=== PATIENT | male | born 1930 | race Caucasian/White ===

== ENCOUNTER → 2017-03-24 | Outpatient (CLI) | payer OTHER ==
[2017-03-24 07:28] LABS: Urine RBC None Seen /hpf (0 - 3)
[2017-03-24 07:41] LABS: Urine Bilirubin Negative (Negative); Urine Blood Negative /uL (Negative); Urine Color Yellow (Yellow); Urine Glucose Normal (Normal); Urine Ketone Negative (Negative); Urine Mucus FEW (None Seen); Urine Nitrite Negative (Negative); Urine Squamous Epithelial Cell FEW /hpf (<5); Urine Urobilinogen Normal (Negative)
[2017-03-24 08:47] LABS: Albumin 4.2 g/dL (3.4-5.0); BUN/Creatinine Ratio 16.7; Bilirubin, Total 0.5 mg/dL (0.2-1.0); Calcium 9.3 mg/dL (8.5-10.1); Potassium 4.4 mmol/L (3.5-5.1); Total Protein 7.3 g/dL (6.4-8.2)
== END | disposition home or self-care (01) ==
LOC: LAB 06:39
PROVIDERS: ATTEND Internal Medicine
DX: Z00.00 Encounter for general adult medical examination without abnormal findings (principal); E78.2 Mixed hyperlipidemia; I10 Essential (primary) hypertension; E55.9 Vitamin D deficiency, unspecified; E11.9 Type 2 diabetes mellitus without complications
CPT/HCPCS: 36415; 80053; 80061; 81001; 82043; 82306; 83036

== ENCOUNTER → 2018-01-30 | Outpatient (CLI) | payer OTHER ==
[2018-01-30 09:19] LABS: Basophils # (auto) 0.1 uL; Eosinophils # (auto) 0.2 uL; Hematocrit 31.9 % (41.0-53.0); Lymphocytes # (auto) 2.2 uL; Platelet Count (auto) 51 10^3/uL (140-450); White Blood Cell 4.9 10^3/uL (4.4-10.8)
[2018-01-30 09:21] LABS: Basophils % (auto) 2.5 % (0.0-2.0); Eosinophils % (auto) 3.9 % (0.0-7.0); Lymphocytes % (auto) 44.7 % (10.0-50.0); Mean Corpuscular Hgb Conc. 34.3 g/dL (32.0-36.0); Mean Corpuscular Volume 93.1 fL (80.0-100.0); Monocytes # (auto) 0.4 uL; Monocytes % (auto) 7.8 % (0.0-12.0); Neutrophils % (auto) 41.1 % (37.0-80.0); Nucleated Red Blood Cells % 0.2 %; Red Blood Cells 3.43 10^6/uL (4.5-5.90)
[2018-01-30 10:01] LABS: Albumin 4.1 g/dL (3.4-5.0); BUN/Creatinine Ratio 19.5; Bilirubin, Total 0.5 mg/dL (0.2-1.0); Calcium 9.2 mg/dL (8.5-10.1); Potassium 4.7 mmol/L (3.5-5.1); Total Protein 7.3 g/dL (6.4-8.2)
== END | disposition home or self-care (01) ==
LOC: LAB 07:58
PROVIDERS: ATTEND Physician Assistant
DX: Z00.01 Encounter for general adult medical examination with abnormal findings (principal); I10 Essential (primary) hypertension; E11.9 Type 2 diabetes mellitus without complications; K21.9 Gastro-esophageal reflux disease without esophagitis; H40.10X2 Unspecified open-angle glaucoma, moderate stage
CPT/HCPCS: 36415; 80053; 80061; 83036; 84153; 85025

== ENCOUNTER → 2018-06-21 | Outpatient (CLI) | payer OTHER | END | disposition home or self-care (01) | LOC: LAB 10:48 | PROVIDERS: ATTEND Internal Medicine Gastroenterology | DX: K21.9 Gastro-esophageal reflux disease without esophagitis (principal); R19.7 Diarrhea, unspecified; E11.9 Type 2 diabetes mellitus without complications; I10 Essential (primary) hypertension | CPT/HCPCS: 82705; 82784; 83516; 86255; 87045; 87493; 87899 ==

== ENCOUNTER 2018-08-03 15:47 | Inpatient (IN) | payer OTHER ==
[~2018-08-03] VITALS: Ht 175.3 cm; Wt 67.4 kg
[2018-08-03] MEDS ORDERED: ALBUTEROL SULF 2.5 MG/0.5ML(0.5%) NEB SOLN NEB ONE (16:15)
[2018-08-03] MEDS ORDERED: IPRATROPIUM BROM 0.5 MG/2.5ML INH SOL NEB ONE (16:15)
[2018-08-03] MEDS ORDERED: cefTRIAXone 1GM/10ml IVPUSH 10 ML IV ONE (16:30)
[2018-08-03 16:52] LABS: Mean Corpuscular Hemoglobin 34.4 pg (28.0-32.0); White Blood Cell 3.4 10^3/uL (4.4-10.8)
[2018-08-03 16:54] LABS: Hematocrit 22.6 % (41.0-53.0); Hemoglobin 7.9 g/dL (13.5-17.5); Mean Corpuscular Hgb Conc. 35.1 g/dL (32.0-36.0); Mean Corpuscular Volume 98.2 fL (80.0-100.0); Red Cell Distribution Width 18.5 % (11.8-14.3)
[2018-08-03 17:08] LABS: Platelet Count (auto) 36 10^3/uL (140-450)
[2018-08-03 17:09] LABS: Band Neutrophils % (manual) 0; Basophils % (manual) 0 (0.0-2.0); Blast Cells 0; Eosinophils % (manual) 0 (0-7); INR 0.96 (0.9-1.15); Metamyelocytes % 0; Myelocytes % 0; Partial Thromboplastin Time 22.4 sec (23.78-33.04); Promyelocytes % 0; Prothrombin Time 10.3 sec (9.27-12.13); Reactive Lymphocytes 0
[2018-08-03 17:12] LABS: Alanine Aminotransferase 23 U/L (16-61); Alkaline Phosphatase 47 U/L (45-117); Anion Gap 14 (5-15); Aspartate Aminotransferase 13 U/L (15-37); Bilirubin, Total 0.4 mg/dL (0.2-1.0); Blood Urea Nitrogen 24 mg/dL (7-18); Carbon Dioxide 20 mmol/L (21-32); Chloride 96 mmol/L (98-107); GFR African American 49 mL/min; GFR Non-African American 40 mL/min; Glucose 101 mg/dL (74-106); Potassium 4.2 mmol/L (3.5-5.1); Sodium 130 mmol/L (136-145); Total Protein 6.9 g/dL (6.4-8.2)
[2018-08-03] MEDS ORDERED: AZITHROMYCIN 500MG/ 250ML 250 ML IV ONE (17:30)
[2018-08-03 17:33] LABS: Lymphocytes % (manual) 57 (10.0-50.0); Monocytes % (manual) 8 (0-12)
[2018-08-03] MEDS ORDERED: PROMETHAZINE HCL 25 MG/ML 1ML IV PRN (18:15)
[2018-08-03] MEDS ORDERED: VANCOMYCIN PER PHARMACY 0 MG IV SCH (18:15)
[2018-08-03] MEDS ORDERED: NITROGLYCERIN 0.4 MG SL TAB SL PRN (18:15)
[2018-08-03] MEDS ORDERED: MORPHINE SULF INJ 2 MG/ML SYRINGE 1ML IV PRN ×2 (18:15)
[2018-08-03] MEDS ORDERED: TEMAZEPAM 15 MG CAP PO PRN (18:15)
[2018-08-03] MEDS ORDERED: ACETAMINOPHEN 500 MG TAB PO PRN (18:15)
[2018-08-03] MEDS ORDERED: LORazepam 0.5 MG TAB PO PRN (18:15)
[2018-08-03] MEDS ORDERED: LACTULOSE 20Gm/30ML SOLN PO PRN (18:15)
[2018-08-03] MEDS ORDERED: DEXTROSE (50%) 50ML SYRG IV PRN (18:15)
[2018-08-03] MEDS ORDERED: ALBUTEROL SULF 2.5 MG/0.5ML(0.5%) NEB SOLN NEB PRN (18:15)
[2018-08-03] MEDS ORDERED: PIPERACILLIN-TAZOB 3.375GM 100 ML IV ONE (18:15)
[2018-08-03] MEDS ORDERED: MORPHINE SULFATE 4 MG/ML SYR/VIAL IV PRN ×2 (18:30)
[2018-08-03] MEDS: SODIUM CHLORIDE 0.9% 1,000 ML IV SCH (18:52)
[2018-08-03] MEDS ORDERED: VANCOMYCIN 1GM/250ML 250 ML IV ONE (19:30)
[2018-08-03 21:16] VITALS: BP 100/67
[2018-08-03 22:00] VITALS: BP 110/58
[2018-08-03] MEDS: InsuLIN REG 1unit/0.01ml Soln (100units/ml) SC SCH (22:00)
[2018-08-03] MEDS: ACCU-CHEK COMFORT CURVE STRIP VI SCH (22:03)
[2018-08-04] MEDS: ALBUTEROL SULF 2.5 MG/0.5ML(0.5%) NEB SOLN NEB SCH ×4 (00:10→19:01)
[2018-08-04] MEDS: PIPERACILLIN-TAZOB 3.375GM 100 ML IV SCH ×5 (00:35→23:44)
[2018-08-04 05:00] VITALS: BP 86/40
[2018-08-04] MEDS ORDERED: SODIUM CHLORIDE 0.9% 1,000 ML IV ONE (06:00)
[2018-08-04] MEDS: InsuLIN REG 1unit/0.01ml Soln (100units/ml) SC SCH ×2 (06:28→11:30)
[2018-08-04] MEDS: ACCU-CHEK COMFORT CURVE STRIP VI SCH ×2 (06:28→11:30)
[2018-08-04 06:34] LABS: White Blood Cell 3.7 10^3/uL (4.4-10.8)
[2018-08-04 06:37] LABS: Hematocrit 20.4 % (41.0-53.0); Hemoglobin 7.4 g/dL (13.5-17.5); Mean Corpuscular Hemoglobin 35.2 pg (28.0-32.0); Mean Corpuscular Hgb Conc. 36.3 g/dL (32.0-36.0); Mean Corpuscular Volume 96.9 fL (80.0-100.0); Platelet Count (auto) 37 10^3/uL (140-450); Red Blood Cells 2.11 10^6/uL (4.5-5.90); Red Cell Distribution Width 18.7 % (11.8-14.3)
[2018-08-04 06:46] LABS: BUN/Creatinine Ratio 12.5; Calcium 8.3 mg/dL (8.5-10.1); Potassium 4.3 mmol/L (3.5-5.1)
[2018-08-04] MEDS: SODIUM CHLORIDE 0.9% 1,000 ML IV SCH ×2 (07:07→20:42)
[2018-08-04 07:08] LABS: Basophils % (manual) 0 (0.0-2.0); Blast Cells 0; Metamyelocytes % 0; Myelocytes % 0; Promyelocytes % 0; Reactive Lymphocytes 0
[2018-08-04 08:19] LABS: Band Neutrophils % (manual) 3; Eosinophils % (manual) 2 (0-7); Lymphocytes % (manual) 57 (10.0-50.0); Monocytes % (manual) 9 (0-12)
[2018-08-04] MEDS ORDERED: VANCOMYCIN 1GM/250ML 250 ML IV ONE (09:00)
[2018-08-04 09:35] VITALS: BP 100/48
[2018-08-04] MEDS: AZITHROMYCIN 500MG/ 250ML 250 ML IV SCH (10:00)
[2018-08-04] MEDS: PANTOPRAZOLE 40 MG TAB PO SCH (10:13)
[2018-08-04 13:00] VITALS: BP 100/51
[2018-08-04 16:31] VITALS: BP 104/47
[2018-08-04 22:00] VITALS: BP 110/57
[2018-08-05] MEDS: ALBUTEROL SULF 2.5 MG/0.5ML(0.5%) NEB SOLN NEB SCH ×4 (00:17→19:21)
[2018-08-05] MEDS: HYDROcodone-ACET 5/325MG TAB PO PRN ×2 (03:36→14:20)
[2018-08-05 04:55] VITALS: BP 94/51
[2018-08-05] MEDS: PIPERACILLIN-TAZOB 3.375GM 100 ML IV SCH ×4 (05:29→23:55)
[2018-08-05] MEDS: SODIUM CHLORIDE 0.9% 1,000 ML IV SCH ×3 (06:19→23:55)
[2018-08-05 06:28] LABS: BUN/Creatinine Ratio 10.9; Calcium 8.4 mg/dL (8.5-10.1); Magnesium 2.3 mg/dL (1.6-2.6); Potassium 4.2 mmol/L (3.5-5.1)
[2018-08-05 06:47] LABS: White Blood Cell 3.4 10^3/uL (4.4-10.8)
[2018-08-05 06:49] LABS: Hematocrit 21.5 % (41.0-53.0); Hemoglobin 7.7 g/dL (13.5-17.5); Mean Corpuscular Hemoglobin 35.1 pg (28.0-32.0); Mean Corpuscular Hgb Conc. 35.9 g/dL (32.0-36.0); Mean Corpuscular Volume 97.9 fL (80.0-100.0); Platelet Count (auto) 34 10^3/uL (140-450); Red Cell Distribution Width 17.3 % (11.8-14.3)
[2018-08-05 07:30] LABS: Band Neutrophils % (manual) 0; Basophils % (manual) 0 (0.0-2.0); Blast Cells 0; Metamyelocytes % 0; Myelocytes % 0; Promyelocytes % 0; Reactive Lymphocytes 0
[2018-08-05 09:00] VITALS: BP 100/44
[2018-08-05 09:15] LABS: Eosinophils % (manual) 2 (0-7); Lymphocytes % (manual) 50 (10.0-50.0); Monocytes % (manual) 4 (0-12)
[2018-08-05] MEDS: AZITHROMYCIN 500MG/ 250ML 250 ML IV SCH (10:41)
[2018-08-05] MEDS: PANTOPRAZOLE 40 MG TAB PO SCH (10:42)
[2018-08-05] MEDS: VANCOMYCIN 1GM/250ML 250 ML IV SCH (11:58)
[2018-08-05 13:00] VITALS: BP 116/62
[2018-08-05 17:00] VITALS: BP 114/54
[2018-08-05 21:41] VITALS: BP 102/54
[2018-08-05 22:22] LABS: Urine Bacteria NONE SEEN /hpf (None Seen); Urine Blood Negative /uL (Negative); Urine Specific Gravity 1.008 (1.001-1.035); Urine WBC 21 /hpf (0 - 3)
[2018-08-06] MEDS: ALBUTEROL SULF 2.5 MG/0.5ML(0.5%) NEB SOLN NEB SCH ×4 (00:32→18:37)
[2018-08-06] MEDS: VANCOMYCIN 1GM/250ML 250 ML IV SCH ×2 (03:55→22:14)
[2018-08-06 05:36] VITALS: BP 106/59
[2018-08-06] MEDS ORDERED: LISI2.5T47 PO (05:39)
[2018-08-06] MEDS ORDERED: METF-370 PO (05:39)
[2018-08-06] MEDS: PIPERACILLIN-TAZOB 3.375GM 100 ML IV SCH ×3 (06:43→18:21)
[2018-08-06 07:17] LABS: Hematocrit 21.2 % (41.0-53.0); Hemoglobin 7.4 g/dL (13.5-17.5); Mean Corpuscular Hemoglobin 34.2 pg (28.0-32.0); Mean Corpuscular Volume 97.9 fL (80.0-100.0); Platelet Count (auto) 39 10^3/uL (140-450); Red Blood Cells 2.16 10^6/uL (4.5-5.90)
[2018-08-06 07:21] LABS: Band Neutrophils % (manual) 0; Basophils % (manual) 0 (0.0-2.0); Blast Cells 0; Metamyelocytes % 0; Myelocytes % 0; Promyelocytes % 0
[2018-08-06 07:30] LABS: BUN/Creatinine Ratio 9.9; Calcium 8.3 mg/dL (8.5-10.1); Potassium 4.1 mmol/L (3.5-5.1)
[2018-08-06 09:00] VITALS: BP 99/46
[2018-08-06 10:01] LABS: Eosinophils % (manual) 1 (0-7); Lymphocytes % (manual) 64 (10.0-50.0); Monocytes % (manual) 6 (0-12); Reactive Lymphocytes 9
[2018-08-06] MEDS: PANTOPRAZOLE 40 MG TAB PO SCH (10:23)
[2018-08-06] MEDS: AZITHROMYCIN 500MG/ 250ML 250 ML IV SCH (10:24)
[2018-08-06] MEDS: SODIUM CHLORIDE 0.9% 1,000 ML IV SCH ×2 (12:25→15:35)
[2018-08-06 13:00] VITALS: BP 104/47
[2018-08-06] MEDS: HYDROcodone-ACET 5/325MG TAB PO PRN (15:32)
[2018-08-06 17:00] VITALS: BP 111/51
[2018-08-06 22:00] VITALS: BP 116/60
[2018-08-07] VITALS (7 sets, daily range): BP systolic 98–123; BP diastolic 52–60
[2018-08-07] MEDS: ALBUTEROL SULF 2.5 MG/0.5ML(0.5%) NEB SOLN NEB SCH ×4 (00:17→19:08)
[2018-08-07] MEDS: PIPERACILLIN-TAZOB 3.375GM 100 ML IV SCH ×2 (00:32→06:27)
[2018-08-07 06:02] LABS: Hemoglobin 7.3 g/dL (13.5-17.5)
[2018-08-07 06:04] LABS: Hematocrit 20.4 % (41.0-53.0); Mean Corpuscular Hgb Conc. 35.6 g/dL (32.0-36.0); Mean Corpuscular Volume 98.2 fL (80.0-100.0); Platelet Count (auto) 43 10^3/uL (140-450); Red Blood Cells 2.07 10^6/uL (4.5-5.90); Red Cell Distribution Width 17.6 % (11.8-14.3); White Blood Cell 3.4 10^3/uL (4.4-10.8)
[2018-08-07 06:08] LABS: BUN/Creatinine Ratio 10.1; Calcium 8.3 mg/dL (8.5-10.1); Potassium 4.1 mmol/L (3.5-5.1)
[2018-08-07 06:23] LABS: Basophils % (manual) 0 (0.0-2.0); Blast Cells 0; Metamyelocytes % 0; Myelocytes % 0; Promyelocytes % 0
[2018-08-07] MEDS: AZITHROMYCIN 500MG/ 250ML 250 ML IV SCH (09:36)
[2018-08-07] MEDS: PANTOPRAZOLE 40 MG TAB PO SCH (09:37)
[2018-08-07] MEDS: HYDROcodone-ACET 5/325MG TAB PO PRN (10:42)
[2018-08-07 11:40] LABS: Hepatitis A Ab IgM Negative
[2018-08-07 11:52] LABS: Hepatitis C Antibody Negative (Negative)
[2018-08-07] MEDS ORDERED: HYDROcodone-ACET 5/325MG TAB PO PRN (12:00)
[2018-08-07] MEDS ORDERED: LEVOFLOXACIN 500MG 100 ML IV ONE (12:00)
[2018-08-07] MEDS ORDERED: FLORASTOR (S. BOULARDII) 250 MG CAP PO ONE (12:00)
[2018-08-07 12:16] LABS: Hepatitis B Core IgM Negative; Hepatitis B Surface Antigen Negative (Negative)
[2018-08-07 13:09] LABS: Lymphocytes % (manual) 54 (10.0-50.0)
[2018-08-07 13:10] LABS: Band Neutrophils % (manual) 3; Eosinophils % (manual) 3 (0-7); Monocytes % (manual) 3 (0-12); Reactive Lymphocytes 2
[2018-08-07] MEDS: SODIUM CHLORIDE 0.9% 1,000 ML IV SCH (14:38)
[2018-08-08] MEDS: ALBUTEROL SULF 2.5 MG/0.5ML(0.5%) NEB SOLN NEB SCH ×3 (00:49→11:25)
[2018-08-08] MEDS: SODIUM CHLORIDE 0.9% 1,000 ML IV SCH (02:40)
[2018-08-08 05:17] VITALS: BP 100/46
[2018-08-08 06:45] LABS: Hematocrit 20.6 % (41.0-53.0); Hemoglobin 7.3 g/dL (13.5-17.5); Mean Corpuscular Hemoglobin 34.7 pg (28.0-32.0); Mean Corpuscular Hgb Conc. 35.6 g/dL (32.0-36.0); Mean Corpuscular Volume 97.5 fL (80.0-100.0); Platelet Count (auto) 52 10^3/uL (140-450); Red Blood Cells 2.11 10^6/uL (4.5-5.90); Red Cell Distribution Width 18.1 % (11.8-14.3)
[2018-08-08 06:50] LABS: Blast Cells 0; Eosinophils % (manual) 0 (0-7); Myelocytes % 0; Promyelocytes % 0
[2018-08-08 06:58] LABS: BUN/Creatinine Ratio 10.5; Calcium 8.4 mg/dL (8.5-10.1); Potassium 4.4 mmol/L (3.5-5.1)
[2018-08-08 07:42] LABS: Band Neutrophils % (manual) 4; Basophils % (manual) 1 (0.0-2.0); Lymphocytes % (manual) 54 (10.0-50.0); Metamyelocytes % 1; Monocytes % (manual) 6 (0-12); Reactive Lymphocytes 1
[2018-08-08 08:00] VITALS: BP 128/63
[2018-08-08 09:00] VITALS: BP 128/63
[2018-08-08 09:34] LABS: % Iron Saturation 64.6 % (20-55)
[2018-08-08 09:52] LABS: Folate (Folic Acid) 18.38 ng/mL (5.38-24)
[2018-08-08] MEDS ORDERED: FLORASTOR (S. BOULARDII) 250 MG CAP PO SCH (10:00)
[2018-08-08] MEDS ORDERED: LEVOFLOXACIN 500MG 100 ML IV SCH (10:00)
[2018-08-08] MEDS: PANTOPRAZOLE 40 MG TAB PO SCH (10:03)
[2018-08-08 13:00] VITALS: BP 117/87
[2018-08-08] MEDS ORDERED: ALBUAER3 IN (15:09)
[2018-08-08] MEDS ORDERED: LEVO500T21 PO (15:09)
[2018-08-08] MEDS ORDERED: SACC250C PO (15:09)
== END 2018-08-08 17:00 | disposition home health service (06) | DRG 871 ==
LOC: ER 15:52 → TELE 15:53 → TELE-WESTW 19:45
PROVIDERS: ADMIT Internal Medicine; ATTEND Internal Medicine
DX: A41.9 Sepsis, unspecified organism (principal); N17.0 Acute kidney failure with tubular necrosis; J69.0 Pneumonitis due to inhalation of food and vomit; D61.818 Other pancytopenia; E87.1 Hypo-osmolality and hyponatremia; E11.9 Type 2 diabetes mellitus without complications; D46.9 Myelodysplastic syndrome, unspecified; H91.90 Unspecified hearing loss, unspecified ear; I10 Essential (primary) hypertension; Z87.891 Personal history of nicotine dependence
CPT/HCPCS: 36415; 71045; 74176; 80048; 80053; 80061; 80074; 80202; 81001; 82607; 82746; 82962; 83036; 83516; 83540; 83550; 83735; 83880; 84443; 84484; 85007; 85027; 85610; 85730; 86225; 86235; 86677; 86880; 87040; 87081; 87086; 93005; 93306; 93970; 94640; 96365; 96367; 96375; 97116; 97163; 97530; A6257; J0696; J1956; J2543